=== PATIENT | female | born 1990 | race American Indian/Alaskan Native ===

== ENCOUNTER 2017-01-11 15:22 | Emergency (ER) | payer BC, MEDICAID ==
[2017-01-11 17:12] LABS: Basophils % (Auto) 0.2 % (0.0-1.8); Eosinophils % (Auto) 0.4 % (0.0-4.3); Hematocrit 36.1 % (30.3-42.9); Hemoglobin 12.1 gm/dl (10.1-14.3); Mean Corpuscular HGB Conc 34 % (30-34); Mean Corpuscular Hemoglobin 28 pg (28-32); Mean Corpuscular Volume 83 fl (79-97); Platelet Count 293 K/mm3 (140-440); Red Blood Count 4.37 M/mm3 (3.65-5.03); Red Cell Distribution Width 13.5 % (13.2-15.2); White Blood Count 7.2 K/mm3 (4.5-11.0)
[2017-01-11 17:28] LABS: Anion Gap 18 mmol/L; Blood Urea Nitrogen 12 mg/dL (7-17); Calcium 9.7 mg/dL (8.4-10.2); Carbon Dioxide 24 mmol/L (22-30); Chloride 96.9 mmol/L (98-107); Glucose 84 mg/dL (65-100); Potassium 3.6 mmol/L (3.6-5.0); Sodium 135 mmol/L (137-145)
[2017-01-11 18:01] LABS: Bacteria,Urine 2+ /HPF (Negative); Bilirubin,Urine NEG (Negative); Blood,Urine NEG (Negative); Ketones,Urine 80 mg/dL (Negative); Leukocyte Esterase,Urine LG (Negative); Mucus,Urine 3+ /HPF; Nitrite,Urine NEG (Negative); Urobilinogen,Urine < 2.0 mg/dL (<2.0)
[2017-01-11] MEDS ORDERED: ZOFRAN IV ONE (19:47)
[2017-01-11] MEDS ORDERED: NACL 0.9% 1000 ML 1,000 ML IV ONE (19:48)
--- NOTE | 2017-01-11 20:51 | Ultrasound Report ---
FINAL REPORT EXAM: US OB TRANSVAGINAL HISTORY: abd pain TECHNIQUE: Endovaginal ultrasound was performed in multiple grayscale sonographic images were obtained of the uterus and adnexa. PRIORS: Transabdominal pelvic ultrasound 01/11/2017 FINDINGS: There is a viable single intrauterine . [place]-rump length is approximately 4.94 centimeters. heart rate was detected at 163 beats per minute. Right and left ovary measure approximately 2.6 x 1.7 x 1.5 centimeters and 3.2 x 1.6 x 2.7 centimeters, respectively. IMPRESSION: 1. Viable single intrauterine with estimated gestational age 11 weeks 4 days. Estimated due date 07/29/2017. Continued follow-up is recommended. 2. Please refer to report from transabdominal pelvic ultrasound from 01/11/2017 for additional information.
--- NOTE | 2017-01-11 20:56 | Ultrasound Report ---
FINAL REPORT EXAM: US OB \T\lt; = 14 WEEKS FETUS HISTORY: abd pain TECHNIQUE: Transabdominal pelvic ultrasound was performed in multiple grayscale sonographic images were obtained of the uterus and adnexa PRIORS: Endovaginal ultrasound 01/11/2017 FINDINGS: Uterus measures approximately 10.1 x 6.7 x 8.2 centimeters. There is a gestational sac in the uterus with a pole that measures approximately 4.5 centimeters in length. heart rate was detected 166 beats per minute. Ovaries were not identified with certainty. IMPRESSION: 1. Viable single intrauterine with estimated gestational age 11 weeks 2 days. Estimated due date 07/31/2017. Continued follow-up is recommended. 2. Nonvisualization of the ovaries. 3. Please refer to report from endovaginal ultrasound from 01/11/2017 for additional information.
--- NOTE | 2017-01-11 23:56 | Emergency Department Report ---
HPI - General Chief Complaint: Nausea/Vomiting/Diarrhea Time Seen by Provider: 01/11/17 23:44 - HPI HPI: Room 17 The patient is a 26-year-old female presenting with chief complaint of nausea and vomiting. Patient states yesterday she developed nausea and vomiting. The patient states she typically just was able to keep down water and kuldeep cynthia. The patient states today at work while standing the room with feels a spinning. This prompted her to come to the ED. The patient denies vaginal bleeding, abdominal pain, fever, dysuria or hematuria. The patient was administered IV fluids and Zofran prior to my evaluation now she states she feels okay. The patient states she was able to eat a frank cracker and keep it down. Patient currently denies nausea Location: Gastrointestinal system Duration: Nausea vomiting started yesterday Quality: Nausea Severity: Moderate Modifying factors: [see above] Context: [see above] Mode of transportation: [not driving] ED Past Medical Hx - Past Medical History Previous Medical History?: No Hx Headaches / Migraines: Yes - Surgical History Past Surgical History?: No - Family History Family history: no significant - Social History Smoking Status: Never Smoker Substance Use Type: None - Medications Home Medications: Home Medications Medication Instructions Recorded Confirmed Last Taken Type HYDROcodone/APAP 5-325 [[place] 1 each PO Q6HR PRN #10 tablet 03/08/16 Unknown Rx 5/325] Methylergonovine [Methergine] 0.2 mg PO Q8HR #7 tablet 03/08/16 Unknown Rx Nitrofurantoin [place]/M-Cryst 100 mg PO Q12HR #20 capsule 01/12/17 Unknown Rx [Macrobid CAP] Ondansetron [Zofran ODT TAB] 8 mg PO Q8HR #30 tab.rapdis 01/12/17 Unknown Rx ED Review of Systems ROS: Stated complaint: 10 WKS /VOMITING/NAUSEA Other details as noted in HPI Comment: All other systems reviewed and negative Constitutional: denies: chills, fever Eyes: denies: eye pain, eye discharge, vision change ENT: denies: ear pain, throat pain Respiratory: denies: cough, shortness of breath, wheezing Cardiovascular: denies: chest pain, palpitations Endocrine: no symptoms reported Gastrointestinal: nausea, vomiting. denies: abdominal pain Genitourinary: denies: urgency, dysuria, discharge Musculoskeletal: denies: back pain, joint swelling, arthralgia Skin: denies: rash, lesions Neurological: denies: headache, weakness, paresthesias Psychiatric: denies: anxiety, depression Hematological/Lymphatic: denies: easy bleeding, easy bruising Physical Exam - Physical Exam Vital Signs: Vital Signs 01/11/17 16:41 Temperature 98.3 F Pulse Rate 73 Respiratory 18 Rate Blood Pressure 117/64 O2 Sat by Pulse 100 Oximetry Physical Exam: GENERAL: The patient is well-developed well-nourished female lying on stretcher not appearing to be in acute distress. [] HEENT: Normocephalic. Atraumatic. Extraocular motions are intact. Patient has moist mucous membranes. NECK: Supple. Trachea midline CHEST/LUNGS: Clear to auscultation. There is no respiratory distress noted. HEART/CARDIOVASCULAR: Regular. There is no tachycardia. There is no gallop rub or murmur. ABDOMEN: Abdomen is soft, nontender. Patient has normal bowel sounds. There is no abdominal distention. SKIN: There is no rash. There is no edema. There is no diaphoresis. NEURO: The patient is awake, alert, and oriented. The patient is cooperative. The patient has normal speech MUSCULOSKELETAL: There is no evidence of acute injury. ED Course Vital Signs 01/11/17 16:41 Temperature 98.3 F Pulse Rate 73 Respiratory 18 Rate Blood Pressure 117/64 O2 Sat by Pulse 100 Oximetry - Reevaluation(s) Reevaluation #1: 01/12/17 00:04 Patient denies dizziness with standing ED Medical Decision Making - Lab Data Result diagrams: 01/11/17 16:54 01/11/17 16:54 Laboratory Tests 01/11/17 01/11/17 01/11/17 16:54 16:54 16:54 WBC 7.2 RBC 4.37 Hgb 12.1 Hct 36.1 MCV 83 MCH 28 MCHC 34 RDW 13.5 Plt Count 293 Lymph % (Auto) 25.0 [place] % (Auto) 9.7 H Eos % (Auto) 0.4 Baso % (Auto) 0.2 Lymph # 1.8 [place] # 0.7 Eos # 0.0 Baso # 0.0 Seg Neutrophils % 64.7 Seg Neutrophils # 4.7 Sodium 135 L Potassium 3.6 Chloride 96.9 L Carbon Dioxide 24 Anion Gap 18 BUN 12 Creatinine 0.4 L Estimated GFR > 60 BUN/Creatinine Ratio 30.00 Glucose 84 Calcium 9.7 HCG, Qual Positive Urine Color Urine Turbidity Urine pH Ur Specific [place] Urine Protein Urine Glucose (UA) Urine Ketones Urine Blood Urine Nitrite Urine Bilirubin Urine Urobilinogen Ur Leukocyte Esterase Urine WBC (Auto) Urine RBC (Auto) U Epithel Cells (Auto) Urine Bacteria (Auto) Urine Mucus 01/11/17 17:35 WBC RBC Hgb Hct MCV MCH MCHC RDW Plt Count Lymph % (Auto) [place] % (Auto) Eos % (Auto) Baso % (Auto) Lymph # [place] # Eos # Baso # Seg Neutrophils % Seg Neutrophils # Sodium Potassium Chloride Carbon Dioxide Anion Gap BUN Creatinine Estimated GFR BUN/Creatinine Ratio Glucose Calcium HCG, Qual Urine Color Yellow Urine Turbidity Cloudy Urine pH 5.0 Ur Specific [place] 1.023 Urine Protein 30 mg/dl Urine Glucose (UA) Neg Urine Ketones 80 Urine Blood Neg Urine Nitrite Neg Urine Bilirubin Neg Urine Urobilinogen < 2.0 Ur Leukocyte Esterase Lg Urine WBC (Auto) 31.0 H Urine RBC (Auto) 38.0 U Epithel Cells (Auto) 18.0 H Urine Bacteria (Auto) 2+ Urine Mucus 3+ - Radiology Data Radiology results: report reviewed (pelvic ultrasound), image reviewed (pelvic ultrasound) Pelvic ultrasound (read by radiologist)-a viable single intrauterine with estimated gestational age 11 weeks 4 days. Estimated due date 07/29/2017. Continued follow-up is recommended. heart rate detected at 163 bpm - Differential Diagnosis hyperemesis gravidarum, UTI, gastroenteritis Critical care attestation.: If time is entered above; I have spent that time in minutes in the direct care of this critically ill patient, excluding procedure time. ED Disposition Clinical Impression: Hyperemesis gravidarum, UTI (urinary tract infection), Nausea and vomiting Disposition: DC-01 TO HOME OR SELFCARE Is pt being admited?: No Does the pt Need Aspirin: No Condition: Stable Instructions: Hyperemesis Gravidarum (ED) Additional Instructions: Return to the emergency department immediately should you develop worsening symptoms, fever, inability to tolerate food or liquid or any other concerns. Prescriptions: Nitrofurantoin [place]/M-Cryst [Macrobid CAP] 100 mg PO Q12HR #20 capsule Ondansetron [Zofran ODT TAB] 8 mg PO Q8HR #30 tab.rapdis Referrals: PRIMARY CARE, [Primary Care Provider] - 3-5 Days Time of Disposition: 00:04
[2017-01-12 00:02] VITALS: BP 91/50
== END 2017-01-12 | disposition home or self-care (01) ==
LOC: ED 15:22
DX: O21.0 Mild hyperemesis gravidarum (principal); O23.30 Infections of other parts of urinary tract in pregnancy, unspecified trimester; R11.0 Nausea; G43.909 Migraine, unspecified, not intractable, without status migrainosus; Z3A.10 10 weeks gestation of pregnancy; Z88.1 Allergy status to other antibiotic agents
CPT/HCPCS: 36415; 76801; 76817; 80048; 81001; 84703; 85025; 96361; 96374; 99284; J2405; J7030

== ENCOUNTER 2017-08-15 19:45 | Emergency (ER) | payer BC, MEDICAID ==
[2017-08-15 19:49] VITALS: BP 121/73
[2017-08-15] MEDS ORDERED: LOVENOX SUB-Q ONE (20:40)
[2017-08-15] MEDS ORDERED: CARAFATE ONE (20:40)
--- NOTE | 2017-08-16 01:53 | Emergency Department Report ---
ED Female HPI - General Chief complaint: Chest Pain Stated complaint: FLU SYMPTOMS Time Seen by Provider: 08/15/17 23:45 Source: patient Mode of arrival: Ambulatory Limitations: No Limitations - History of Present Illness Initial comments: This is a 27 y.o. female, presents with right breast pain. Patient states she is having sever pain to right breast and the breast is warm to touch. Symptoms started 2 days ago. She had a child on 07/30/2017 and she is currently breast feeding. She is expressing the milk with electric pump and using warm compresses to see if that will release milk with minimal improvement. Reports "breast feel heavy as a brick". She is afraid to take anything for pain. -: days(s) (2) Location: other (right breast) Radiation: non-radiating Severity: moderate Severity scale (0 -10): 8 Quality: sharp, aching Consistency: constant Improves with: other (pumping breast) Worsens with: movement Are you Now?: No Associated Symptoms: fever/chills. denies: vaginal discharge, vaginal bleeding , abdominal pain, nausea/vomiting, headaches, loss of appetite, dysuria, hematuria, rash, seizure, shortness of breath, syncope, weakness - Related Data Sexually active: Yes : 3 Para: 1 A: 1 Previous Rx's Medication Instructions Recorded Last Taken Type HYDROcodone/APAP 5-325 [[place] 1 each PO Q6HR PRN #10 tablet 03/08/16 Unknown Rx 5/325] Methylergonovine [Methergine] 0.2 mg PO Q8HR #7 tablet 03/08/16 Unknown Rx Nitrofurantoin [place]/M-Cryst 100 mg PO Q12HR #20 capsule 01/12/17 Unknown Rx [Macrobid CAP] Ondansetron [Zofran ODT TAB] 8 mg PO Q8HR #30 tab.rapdis 01/12/17 Unknown Rx Clindamycin HCl 300 mg PO 4XD 10 Days #40 capsule 08/16/17 Unknown Rx Allergies Allergy/AdvReac Type Severity Reaction Status Date / Time amoxicillin Allergy Unknown Verified 01/11/17 16:41 ED Review of Systems ROS: Stated complaint: FLU SYMPTOMS Other details as noted in HPI Constitutional: chills, fever. denies: diaphoresis, malaise, weakness Respiratory: denies: cough, shortness of breath, wheezing Cardiovascular: denies: chest pain, palpitations Gastrointestinal: denies: abdominal pain, nausea, diarrhea Genitourinary: denies: urgency, dysuria, discharge Skin: change in color (right breast, red and tender to touch). denies: rash, lesions ED Past Medical Hx - Past Medical History Hx Headaches / Migraines: Yes - Surgical History Past Surgical History?: Yes Additional Surgical History: July 2017 - Social History Smoking Status: Never Smoker Substance Use Type: None - Medications Home Medications: Home Medications Medication Instructions Recorded Confirmed Last Taken Type HYDROcodone/APAP 5-325 [[place] 1 each PO Q6HR PRN #10 tablet 03/08/16 Unknown Rx 5/325] Methylergonovine [Methergine] 0.2 mg PO Q8HR #7 tablet 03/08/16 Unknown Rx Nitrofurantoin [place]/M-Cryst 100 mg PO Q12HR #20 capsule 01/12/17 Unknown Rx [Macrobid CAP] Ondansetron [Zofran ODT TAB] 8 mg PO Q8HR #30 tab.rapdis 01/12/17 Unknown Rx Clindamycin HCl 300 mg PO 4XD 10 Days #40 capsule 08/16/17 Unknown Rx ED Physical Exam - General Limitations: No Limitations General appearance: alert, in no apparent distress - Respiratory Respiratory exam: Present: normal lung sounds bilaterally. Absent: respiratory distress - Cardiovascular Cardiovascular Exam: Present: regular rate, normal rhythm. Absent: systolic murmur, diastolic murmur, rubs, gallop - GI/Abdominal GI/Abdominal exam: Present: soft, normal bowel sounds - Neurological Exam Neurological exam: Present: alert, oriented X3 - Skin Skin exam: Present: warm, dry, intact, erythema (right breast erythematous ast 9 o'clock, swollen, painful to palpation). Absent: rash ED Course Vital Signs 08/15/17 08/15/17 19:48 19:55 Temperature 99.3 F 99.3 F Pulse Rate 125 H 120 H Respiratory 18 16 Rate Blood Pressure 121/73 Blood Pressure 121/73 [Right] O2 Sat by Pulse 99 96 Oximetry ED Medical Decision Making - Medical Decision Making This is a 27 y.o. female that presents with right breast pain for 2 days. Patient was examined by me. She is stable and in no distress. Physical assessment findings susceptible of mastitis of right breast. Start clindamycin 300 mg po tid x 10 days. Discussed ER plan and prevention options. Discharged home. Follow up with [facility]. Critical care attestation.: If time is entered above; I have spent that time in minutes in the direct care of this critically ill patient, excluding procedure time. ED Disposition Clinical Impression: Acute mastitis of right breast, Breast pain, right Disposition: TO HOME OR SELFCARE Is pt being admited?: No Does the pt Need Aspirin: No Condition: Stable Instructions: Mastitis (ED) Additional Instructions: Complete medication as prescribed. If symptoms are not improved in 48 hours return to ER or [facility]. To prevent this from reoccurring use lanolin for dry nipples, breast feed or pump frequently, and avoid plastic-backed breast pads. Prescriptions: Clindamycin HCl 300 mg PO 4XD 10 Days #40 capsule Referrals: CELINA YOON MD [Staff Physician] - 3-5 Days Time of Disposition: 02:14 Print Language: [place]
[2017-08-16] MEDS ORDERED: CLEOCIN PO ONE (02:23)
[2017-08-16] MEDS ORDERED: TYLENOL PO ONE (03:44)
== END 2017-08-16 03:51 | disposition home or self-care (01) ==
LOC: ED 19:45
DX: N61.0 Mastitis without abscess (principal); N64.4 Mastodynia; G43.909 Migraine, unspecified, not intractable, without status migrainosus; Z88.1 Allergy status to other antibiotic agents
CPT/HCPCS: 87400; 99282; J1650